=== PATIENT | male | born 1970 | race Caucasian/White ===

== ENCOUNTER 2019-07-29 01:47 | Emergency (ER) | payer SELFPAY ==
[~2019-07-29] VITALS: Ht 172.7 cm; Wt 73.0 kg
[2019-07-29] MEDS ORDERED: BACITRACIN ZINC OINT UDPKT TOP ONE (03:00)
[2019-07-29] MEDS ORDERED: LIDOCAINE 1%/EPI 1:100,000 10 ML VIAL IJ ONE (03:00)
[2019-07-29] MEDS ORDERED: TETANUS, DIPHTHERIA, PERTUSSIS VAC/PF 0.5ML (>7YR OLD) IM ONE (03:00)
[2019-07-29] MEDS ORDERED: LIDOCAINE HCL/EPINEPHRINE 1%-EPI 1:100,000 20 ML VIAL INFIL NR (03:15)
[2019-07-29 05:51] VITALS: BP 111/64
== END 2019-07-29 05:52 | disposition home or self-care (01) ==
LOC: ER 01:47
DX: S61.411A Laceration without foreign body of right hand, initial encounter (principal); X58.XXXA Exposure to other specified factors, initial encounter; Y93.89 Activity, other specified; Y92.89 Other specified places as the place of occurrence of the external cause; Y99.8 Other external cause status
CPT/HCPCS: 73130; 99283; J3490

== ENCOUNTER 2019-11-15 17:18 | Emergency (ER) | payer MEDICAID ==
[~2019-11-15] VITALS: Ht 172.7 cm; Wt 75.0 kg
[2019-11-15] MEDS ORDERED: LIDOCAINE HCL 1% 20ML VIAL (Pyxis) INJ INFIL ONE (18:00)
[2019-11-15] MEDS ORDERED: CEFTRIAXONE SODIUM 250 MG/VIAL IM ONE (18:00)
[2019-11-15] MEDS ORDERED: KETOROLAC 60MG/2ML VIAL IM ONE (18:00)
[2019-11-15] MEDS ORDERED: CEFAZOLIN 1000MG PREMIX 50 ML IV ONE (18:15)
[2019-11-15] MEDS ORDERED: SODIUM CHLORIDE 0.9% 1,000 ML IV ONE (18:15)
[2019-11-15] MEDS ORDERED: MORPHINE SULFATE 4 MG/ML CPJ (NOT FOR IM USE) IV ONE (18:30)
[2019-11-15 23:54] VITALS: BP 110/69
== END 2019-11-16 00:14 | disposition short-term general hospital (02) ==
LOC: ER 18:43
DX: S62.633A Displaced fracture of distal phalanx of left middle finger, initial encounter for closed fracture (principal); X58.XXXA Exposure to other specified factors, initial encounter; Y93.89 Activity, other specified; Y92.89 Other specified places as the place of occurrence of the external cause; Y99.8 Other external cause status
CPT/HCPCS: 73140; 96365; 96372; 96375; 99285; J0690; J0696; J1885; J2270; J3490; J7030

== ENCOUNTER 2019-11-29 13:01 | Emergency (ER) | payer MEDICAID ==
[~2019-11-29] VITALS: Ht 172.7 cm; Wt 73.0 kg
[2019-11-29] MEDS ORDERED: IBUPROFEN 600MG TABLET PO ONE (15:30)
[2019-11-29] MEDS ORDERED: BACITRACIN ZINC OINT UDPKT TOP ONE (16:30)
[2019-11-29 16:45] VITALS: BP 110/75
== END 2019-11-29 16:46 | disposition home or self-care (01) ==
LOC: ER 13:01
DX: Z48.00 Encounter for change or removal of nonsurgical wound dressing (principal)
CPT/HCPCS: 29130; 99283

== ENCOUNTER 2020-08-03 20:11 | Emergency (ER) | payer MEDICAID ==
[~2020-08-03] VITALS: Ht 177.8 cm; Wt 80.0 kg
[2020-08-03 20:45] VITALS: BP 105/60
[2020-08-03] MEDS ORDERED: TETANUS, DIPHTHERIA, PERTUSSIS VAC/PF 0.5ML (>7YR OLD) IM ONE (20:45)
[2020-08-03] MEDS ORDERED: ACETAMINOPHEN 325MG TABLET PO ONE (20:45)
== END 2020-08-03 23:37 | disposition home or self-care (01) ==
LOC: ER 20:11
DX: S01.81XA Laceration without foreign body of other part of head, initial encounter (principal); W22.8XXA Striking against or struck by other objects, initial encounter; Y93.89 Activity, other specified; Y92.89 Other specified places as the place of occurrence of the external cause; Y99.8 Other external cause status
CPT/HCPCS: 70450; 90471; 90715; 99284; Z7610

== ENCOUNTER 2021-06-08 22:25 | Emergency (ER) | payer MEDICAID ==
[~2021-06-08] VITALS: Ht 172.7 cm; Wt 73.0 kg
[2021-06-08 22:44] VITALS: BP 107/71
[2021-06-09 00:54] LABS: BASOPHILS % 0.5 % (0.0-2.0); EOSINOPHILS % 0.9 % (0.0-5.0); HEMATOCRIT. 41.9 % (42.0-52.0); HEMOGLOBIN. 13.9 g/dL (14.0-18.0); LYMPHOCYTES % 15.3 % (20.0-50.0); MEAN CORPUSCULAR HEMOGLOBIN 30.5 pg (28.0-32.0); MEAN CORPUSCULAR VOLUME 92.1 fL (80.0-94.0); MONOCYTES % 6.2 % (2.0-8.0); NEUTROPHILS % 77.1 % (40.0-76.0); PLATELET 272 x1000/uL (130-400); RED BLOOD CELL COUNT 4.55 mill/uL (4.7-6.1); RED CELL DISTRIBUTION WIDTH 12.9 % (11.6-14.6)
[2021-06-09 00:59] LABS: CHLORIDE 105 mEq/L (98-107)
[2021-06-09 01:04] LABS: ETHANOL BLOOD 157 mg/dL
[2021-06-09] MEDS ORDERED: NAPR-681 PO (02:10)
[2021-06-09] MEDS ORDERED: CEPH500T PO (02:10)
[2021-06-09] MEDS ORDERED: SULF1TAB48 MT (02:10)
== END 2021-06-09 00:45 | disposition home or self-care (01) ==
LOC: ER 22:25
DX: S80.862A Insect bite (nonvenomous), left lower leg, initial encounter (principal); R51.9 Headache, unspecified; W57.XXXA Bitten or stung by nonvenomous insect and other nonvenomous arthropods, initial encounter; Y93.89 Activity, other specified; Y92.89 Other specified places as the place of occurrence of the external cause; Y99.8 Other external cause status; F10.129 Alcohol abuse with intoxication, unspecified; Y90.6 Blood alcohol level of 120-199 mg/100 ml
CPT/HCPCS: 36415; 80048; 80320; 85025; 99283; G0480